=== PATIENT | male | born 1975 | race African-American/Black ===

== ENCOUNTER 2018-05-03 12:24 | Emergency (ER) | payer OTHER ==
[~2018-05-03] VITALS: Ht 182.9 cm; Wt 112.0 kg
[2018-05-03 13:28] LABS: ABSOLUTE BASOPHILS 0.1 thou/uL (0.0-0.2); ABSOLUTE EOSINOPHILS 0.2 thou/uL (0.0-0.7); ABSOLUTE LYMPHOCYTES 1.8 thou/uL (0.8-5.3); ABSOLUTE MONOCYTES 0.6 thou/uL (0.0-1.2); ABSOLUTE NEUTROPHILS 7.9 thou/uL (1.6-8.1); BASOPHILS 1.3 %; EOSINOPHILS 1.5 %; HEMATOCRIT 41.1 % (42.0-52.0); HEMOGLOBIN 14.2 gm/dL (14.0-18.0); LYMPHOCYTES 16.7 %; MCHC 34.5 g/dL (28.0-37.0); MCV 83.9 fL (80.0-100.0); MONOCYTES 5.7 %; MPV 10.4 fl. (7.2-11.1); NUCLEATED RBCS 0 /100WBC; PLATELET COUNT* 227 thou/uL (150-400); POLYS 74.8 %; RDW-CV 13.7 % (10.5-14.5); WBC 10.6 thou/uL (4.0-11.0)
[2018-05-03 13:40] LABS: INR 0.9; PROTIME 9.5 Seconds (9.20-11.50)
[2018-05-03] MEDS ORDERED: PRINIVIL20 M1 PO (13:50)
[2018-05-03] MEDS ORDERED: ASPIR 8181 MG PO (13:50)
[2018-05-03] MEDS ORDERED: ATORVASTATIN CA40 MG PO (13:51)
[2018-05-03 14:03] LABS: URINE BILIRUBIN NEGATIVE (Negative); URINE BLOOD TRACE (Negative); URINE CLARITY CLEAR; URINE COLOR YELLOW; URINE GLUCOSE-RANDOM 3+ (Negative); URINE KETONES 1+ (Negative); URINE LEUKOCYTES-REFLEX NEGATIVE (Negative); URINE NITRITE-REFLEX NEGATIVE (Negative); URINE PROTEIN NEGATIVE (Negative); URINE UROBILINOGEN 0.2 E.U./dl (0.2-1.0)
[2018-05-03 14:04] LABS: ANION GAP 9 mmol/L (7-16); BUN 15 mg/dL (7-18); CALCIUM 8.5 mg/dL (8.5-10.1); CHLORIDE 102 mmol/L (98-107); CO2 28 mmol/L (21-32); CREATININE 1.3 mg/dL (0.6-1.3); GLUCOSE 174 mg/dL (70-99); POTASSIUM 3.3 mmol/L (3.5-5.1); SODIUM 139 mmol/L (136-145); TROPONIN-I LEVEL <0.06 ng/mL (<0.06)
[2018-05-03 14:06] LABS: ALBUMIN 3.6 g/dL (3.4-5.0); ALKALINE PHOSPHATASE 75 U/L (46-116); LIPASE 241 U/L (73-393); NT-PRO BRAIN NAT PEPTIDE 7 pg/mL (<300); SGOT 14 U/L (15-37); SGPT 31 U/L (30-65); TOTAL BILIRUBIN 0.3 mg/dL (<0.1-1.0); TOTAL PROTEIN 7.5 g/dL (6.4-8.2)
[2018-05-03 16:00] VITALS: BP 135/87
--- NOTE | 2018-05-03 17:46 | EKG ---
[place] [address] ELECTROCARDIOGRAM REPORT Name: ALFRED LEE Room: [facility]#: [id number] Admission: 05/03/18 Attend Phys: Discharge: 05/03/18 Date of : 77 Report #: [id number] THIS REPORT FOR: //name// [facility] ED Test Date: 2018-05-03 Test Time: 13:12:01 Pat Name: ALFRED LEE Department: Room: Gender: M [employer] T[employer] Off: ELENA HERNANDEZ : 1975 Requested By: Sunni [place] Order Number: [id number] MD: Trey Galindo Measurements Intervals [place] Rate: 83 P: 42 MD: 151 QRS: 16 QRSD: 102 T: 41 QT: 385 QTc: 453 Interpretive Statements Sinus rhythm No previous ECG available for comparison Electronically Signed On 05-03-2018 17:46:23 CDT by Trey Galindo [email or web address] <ELECTRONICALLY SIGNED> By: Trey Galindo MD, [facility] 05/03/18 1746 1312 1312 Trey Galindo MD, FACC /EPI
== END 2018-05-03 16:01 | disposition home or self-care (01) ==
LOC: M.ERS 12:24
PROVIDERS: Personal Emergency Response Attendant
DX: R55 Syncope and collapse (principal); E11.9 Type 2 diabetes mellitus without complications; I10 Essential (primary) hypertension